=== PATIENT | male | born 1975 | race Caucasian/White ===

== ENCOUNTER 2019-01-20 07:54 | Emergency (ER) | payer BC ==
--- NOTE | 2019-01-20 08:15 | EDPHY ---
H & P Stated Complaint: Sudden RLQ pn to back @0700, denies N/V/D Time Seen by Provider: 01/20/19 08:14 - Personal History Current Tetanus/Diphtheria Vaccine: Unsure - Medical/Surgical History Other PMH: Low back pain Constitutional: Initial Vital Signs Heart Rate 85 01/20/19 07:57 Respiratory Rate 28 H 01/20/19 07:57 Blood Pressure 122/69 H 01/20/19 07:57 O2 Sat (%) 100 01/20/19 07:57 O2 Delivery Mode Room Air Allergies/Adverse Reactions: No Known Allergies Allergy (Unverified 01/20/19 07:57) Home Medications: Medication Instructions Recorded Ondansetron Odt [Zofran Odt 4 mg 4 mg PO Q4 PRN #10 tab 01/20/19 (RX)] Tamsulosin HCl [Flomax 0.4 MG (*)] 0.4 mg PO DAILY #10 cap 01/20/19 oxyCODONE IR [Oxycodone Ir (*)] 5 - 10 mg PO Q6 PRN #20 tab 01/20/19 Medical Decision Making - Diagnostics Imaging Results: Imaging Impressions Abdomen/Pelvis CT 01/20/19 08:26 Impression: 1. 5 mm mid right ureteral calculus results in mild hydronephrosis. 2. Right nephrolithiasis. 3. Constipation. Findings discussed with Emergency Department physician, Eric Oleary MD on at 9:00 a.m. Attention: This CT examination is specifically designed to evaluate patients who are clinically suspected of having acute obstructive uropathy. This examination does not use radiographic contrast, and as such, provides only a limited evaluation of the abdomen, pelvis and retroperitoneum. If there is further clinical suspicion for pathological conditions other than obstructive uropathy, a complete CT evaluation of the abdomen and pelvis utilizing intravenous, oral, and rectal contrast should be considered. Imaging: Discussed imaging studies w/ physically impaired teacher Radiologist, I viewed and interpreted images myself ED Course/Re-evaluation: CHIEF COMPLAINT: Abdominal pain HISTORY OF PRESENT ILLNESS: The patient is a 43 y/o male complaining of worsening right abdominal pain radiating to his back onset at 07:00, 1.5 hours ago. When he twisted to the left , the pain significantly increased. Currently he is having pain radiating from his right groin, through his abdomen, and around to his back. No fever, headache , body aches, lightheadedness, chest pain, heart palpitations, shortness of breath, cough, urinary or bowel complaints, numbness, paresthesias. REVIEW OF SYSTEMS: A comprehensive 10 system review of systems is otherwise negative aside from elements mentioned in the history of present illness and medical decision making. PHYSICAL EXAM: HR, BP, O2 Sat, RR. Temp noted General Appearance: Diaphoretic, alert, well hydrated, appropriate, and non- toxic appearing. Head: Atraumatic without scalp tenderness or obvious injury Eyes: Pupils equal, round, reactive to light and accommodation, EOMI, no trauma , no injection. Ears: Clear bilaterally, no perforation, normal landmarks Nose: Atraumatic, no rhinorrhea, clear. Throat: There is no erythema or exudates, no lesions, normal tonsils, mucus membranes moist. Neck: Supple, 2+ carotid upstroke, nontender, no lymphadenopathy. Respiratory: No retractions, no distress, no wheezes, and no accessory muscle use. Lungs are clear to auscultation bilaterally. Cardiovascular: Regular rate and rhythm, no murmurs, rubs, or gallops. Bilateral carotid, radial, dorsalis pedis, and posterior tibial pulses intact. Good capillary refill all extremities. Gastrointestinal: Abdomen is soft, nontender, non-distended, no masses, no rebound, no guarding, no peritoneal signs. Back: Right CVA tenderness. Musculoskeletal: Normal active ROM of all extremities, atraumatic. Neurological: Alert, appropriate, and interactive. The patient has normal DTRs and non-focal cranial nerves, motor, sensory, and cerebellar exam. Skin: No rashes, good turgor, no nodules on palpation. Past medical history: Denies Past surgical history: Denies Family history: Denies Social history: , lives in [place], employed DIAGNOSTICS/PROCEDURES/CRITICAL CARE TIME: Abdominopelvic CT: 5mm x 3mm mid-ureteral kidney stone with mild to moderate hydroureter and hydronephrosis. DIFFERENTIAL DIAGNOSIS: The differential diagnosis for the patient's flank pain included but was not limited to musculoskeletal causes, kidney stone, pyelonephritis, shingles, diverticulitis, appendicitis, and aortic aneurysm. MEDICAL DECISION MAKING: The patient is a 43 y/o male presenting with worsening right abdominal pain radiating to his back onset at 07:00, 1.5 hours ago. He has right CVA tenderness ; palpation does not change the intensity of the pain. His symptoms are consistent with a kidney stone. Labs and abdominopelvic CT ordered; 1L IV NS, 1mg IV Dilaudid, 30mg IV Toradol and 4mg IV Zofran administered. 0857: I spoke with Dr. Cain, radiologist, regarding patient's abdominopelvic CT. The patient has 5mm x 3mm mid-ureteral kidney stone with mild to moderate hydroureter and hydronephrosis. 0.4mg PO Flomax administered. I will also prescribe the patient Flomax, Zofran, and OxyIR for his symptoms. 0903: Reassessed patient and discussed laboratory and imaging findings. He is still having pain and has not urinated. 1030: Reassessed patient and discussed UA findings. His UA reveals hematuria without signs of infection. His pain has improved. I have discussed his prescriptions and advised him to follow up with a urologist. Return precautions provided; patient is comfortable with this plan. - Data Points Laboratory Results: Laboratory Results 01/20/19 08:20 01/20/19 08:20 01/20/19 01/20/19 01/20/19 10:07 08:51 08:20 WBC RBC Hgb POC Hgb 17.0 gm/dL gm/dL (13.7-17.5) Hct POC Hct 50 % % (40-51) MCV MCH MCHC RDW Plt Count MPV Neut % (Auto) Lymph % (Auto) [place] % (Auto) Eos % (Auto) Baso % (Auto) Nucleat RBC Rel Count Absolute Neuts (auto) Absolute Lymphs (auto) Absolute Monos (auto) Absolute Eos (auto) Absolute Basos (auto) Absolute Nucleated RBC Immature Gran % Immature Gran # POC Sodium 141 mEq/L mEq/L (135-145) Sodium 138 mEq/L mEq/L (135-145) POC Potassium 3.7 mEq/L mEq/L (3.3-5.0) Potassium 3.8 mEq/L mEq/L (3.5-5.2) POC Chloride 104 mEq/L mEq/L (97-110) Chloride 104 mEq/L mEq/L (97-110) Carbon Dioxide 19 mEq/l L mEq/l (22-31) POC Total CO2 18 mEq/L L mEq/L (22-31) Anion Gap 15 mEq/L H mEq/L (6-14) POC BUN 19 mg/dL mg/dL (7-23) BUN 19 mg/dL mg/dL (7-23) Creatinine 1.0 mg/dL mg/dL (0.7-1.3) POC Creatinine 0.9 mg/dL mg/dL (0.7-1.3) Estimated GFR > 60 Glucose 145 mg/dL H mg/dL (70-100) POC Glucose 144 mg/dL H mg/dL (70-100) Calcium 9.6 mg/dL mg/dL (8.5-10.4) Urine Color YELLOW Urine Appearance CLEAR Urine pH 7.0 (5.0-7.5) Ur Specific [place] 1.021 (1.002-1.030) Urine Protein NEGATIVE (NEGATIVE) Urine Ketones 1+ H (NEGATIVE) Urine Blood 1+ H (NEGATIVE) Urine Nitrate NEGATIVE (NEGATIVE) Urine Bilirubin NEGATIVE (NEGATIVE) Urine Urobilinogen 2.0 EU H EU (0.2-1.0) Ur Leukocyte Esterase NEGATIVE (NEGATIVE) Urine RBC Pending Urine WBC Pending Ur Epithelial Cells Pending Urine Glucose NEGATIVE (NEGATIVE) 01/20/19 08:20 WBC 6.94 10^3/uL 10^3/uL (3.80-9.50) RBC 5.05 10^6/uL 10^6/uL (4.40-6.38) Hgb 16.4 g/dL g/dL (13.7-17.5) POC Hgb Hct 45.8 % % (40.0-51.0) POC Hct MCV 90.7 fL fL (81.5-99.8) MCH 32.5 pg pg (27.9-34.1) MCHC 35.8 g/dL g/dL (32.4-36.7) RDW 11.7 % % (11.5-15.2) Plt Count 289 10^3/uL 10^3/uL (150-400) MPV 9.1 fL fL (8.7-11.7) Neut % (Auto) 61.7 % % (39.3-74.2) Lymph % (Auto) 28.4 % % (15.0-45.0) [place] % (Auto) 7.9 % % (4.5-13.0) Eos % (Auto) 1.2 % % (0.6-7.6) Baso % (Auto) 0.4 % % (0.3-1.7) Nucleat RBC Rel Count 0.0 % % (0.0-0.2) Absolute Neuts (auto) 4.28 10^3/uL 10^3/uL (1.70-6.50) Absolute Lymphs (auto) 1.97 10^3/uL 10^3/uL (1.00-3.00) Absolute Monos (auto) 0.55 10^3/uL 10^3/uL (0.30-0.80) Absolute Eos (auto) 0.08 10^3/uL 10^3/uL (0.03-0.40) Absolute Basos (auto) 0.03 10^3/uL 10^3/uL (0.02-0.10) Absolute Nucleated RBC 0.00 10^3/uL 10^3/uL (0-0.01) Immature Gran % 0.4 % % (0.0-1.1) Immature Gran # 0.03 10^3/uL 10^3/uL (0.00-0.10) POC Sodium Sodium POC Potassium Potassium POC Chloride Chloride Carbon Dioxide POC Total CO2 Anion Gap POC BUN BUN Creatinine POC Creatinine Estimated GFR Glucose POC Glucose Calcium Urine Color Urine Appearance Urine pH Ur Specific [place] Urine Protein Urine Ketones Urine Blood Urine Nitrate Urine Bilirubin Urine Urobilinogen Ur Leukocyte Esterase Urine RBC Urine WBC Ur Epithelial Cells Urine Glucose Medications Given: Discontinued Medications Hydromorphone HCl (Dilaudid) 1 mg IVP EDNOW ONE Stop: 01/20/19 08:26 Last Admin: 01/20/19 08:29 Dose: 1 mg Sodium Chloride (Ns) 1,000 mls @ 0 mls/hr IV EDNOW ONE; Wide Open PRN Reason: Protocol Stop: 01/20/19 08:26 Last Admin: 01/20/19 08:29 Dose: 1,000 mls Sodium Chloride (Ns) 1,000 mls @ 0 mls/hr IV EDNOW ONE; Wide Open PRN Reason: Protocol Stop: 01/20/19 10:05 Last Admin: 01/20/19 10:16 Dose: 1,000 mls Ketorolac Tromethamine (Toradol) 30 mg IVP EDNOW ONE Stop: 01/20/19 08:26 Last Admin: 01/20/19 08:30 Dose: 30 mg Ondansetron HCl (Zofran) 4 mg IVP EDNOW ONE Stop: 01/20/19 08:26 Last Admin: 01/20/19 08:29 Dose: 4 mg Tamsulosin HCl (Flomax) 0.4 mg PO EDNOW ONE Stop: 01/20/19 08:59 Last Admin: 01/20/19 09:02 Dose: 0.4 mg Point of Care Test Results: Chemistry 01/20/19 08:51 POC Sodium 141 mEq/L mEq/L (135-145) POC Potassium 3.7 mEq/L mEq/L (3.3-5.0) POC Chloride 104 mEq/L mEq/L (97-110) POC Total CO2 18 mEq/L L mEq/L (22-31) POC BUN 19 mg/dL mg/dL (7-23) POC Creatinine 0.9 mg/dL mg/dL (0.7-1.3) POC Glucose 144 mg/dL H mg/dL (70-100) ISTAT H&H 01/20/19 08:51 POC Hgb 17.0 gm/dL gm/dL (13.7-17.5) POC Hct 50 % % (40-51) Departure - Departure Disposition: Home, Routine, Self-Care Clinical Impression: Kidney stone on right side, Hydroureter Hydronephrosis Qualifiers: Hydronephrosis type: unspecified Qualified Code(s): N13.30 - Unspecified hydronephrosis Hematuria Qualifiers: Hematuria type: benign essential microscopic Qualified Code(s): R31.1 - Benign essential microscopic hematuria Condition: Good Instructions: Kidney Stones (ED), How to Strain Your Urine (ED), Hematuria (ED) Additional Instructions: 1. Take Zofran, OxyIR, and Flomax as prescribed. 2. Followup with your urologist within one week. 3. Return to the emergency apartment for fever, severe pain, inability to urinate or other concerns. 4. Strain urine to try and catch the kidney stone and bring this to the urology appointment. Referrals: Nguyễn Daley MD [Medical Doctor] - As per Instructions Prescriptions: Ondansetron Odt [Zofran Odt 4 mg (RX)] 4 mg PO Q4 PRN #10 tab PRN Reason: Nausea/Vomiting, Use 1st oxyCODONE IR [Oxycodone Ir (*)] 5 - 10 mg PO Q6 PRN #20 tab PRN Reason: Pain, Severe Tamsulosin HCl [Flomax 0.4 MG (*)] 0.4 mg PO DAILY #10 cap Report Scribed for: Eric Oleary Report Scribed by: Carmen Vines Date of Report: 01/20/19 Time of Report: 08:21
[2019-01-20] MEDS ORDERED: NS 1,000 ML IV ONE ×2 (08:25→10:04)
[2019-01-20] MEDS ORDERED: ONDANSETRON 4 MG/2 ML VIAL IVP ONE (08:25)
[2019-01-20] MEDS ORDERED: KETOROLAC 30 MG/1 ML SDV ONE (08:25)
[2019-01-20] MEDS ORDERED: HYDROmorphONE/DILAUDID 1 MG/ML INJ ONE (08:25)
[2019-01-20] MEDS ORDERED: ONDANSETRON 4 MG/2 ML VIAL ONE (08:25)
[2019-01-20] MEDS ORDERED: HYDROmorphONE/DILAUDID 2 MG/ML INJ IVP ONE (08:25)
[2019-01-20] MEDS ORDERED: KETOROLAC 30 MG/1 ML SDV IVP ONE (08:25)
[2019-01-20 08:33] LABS: PLATELET COUNT 289 10^3/uL (150-400)
[2019-01-20] MEDS ORDERED: TAMSULOSIN HCL 0.4 MG CAP PO ONE (08:58)
[2019-01-20 11:08] VITALS: BP 135/85
== END 2019-01-20 11:06 | disposition home or self-care (01) ==
DX: N20.0 Calculus of kidney (principal); N13.1 Hydronephrosis with ureteral stricture, not elsewhere classified
CPT/HCPCS: 82435-PO; 82565-PO; 82947-PO; 84132-PO; 84295-PO; 84520-PO; 85014-ER; 96374; J1170; J1885; J2405

== ENCOUNTER → 2019-01-27 | Outpatient (CLI) | payer BC | LOC: BMCIMAGING 10:55 | PROVIDERS: ATTEND Urology | DX: N20.1 Calculus of ureter (principal) ==

== ENCOUNTER → 2019-02-14 | Outpatient (CLI) | payer BC | LOC: FIMAGING 08:37 | PROVIDERS: ATTEND Urology | DX: N20.0 Calculus of kidney (principal) ==